=== PATIENT | male | born 1935 | race Caucasian/White ===

== ENCOUNTER 2016-08-07 09:11 | Inpatient (IN) | payer OTHER ==
[~2016-08-07] VITALS: Ht 160 cm; Wt 73.2 kg
[~2016-08-07 09:11] MED LIST: ASPIR 8181 MG PO; BACLOFEN10 MG PO; COR3 PO; ENALAPRIL/HCTZ1 TA1 PO; FER300 PO; GABAPENTIN100 M2 PO; IMDUR ER30 M1 PO; IPRATROPIUM BROM3 M2 INH; JALYN1 CAP PO; LAC PO; LASIX40 MG PO; LEVAQUIN750 MG PO; LEVOTHYROXINE0.1 M2 PO; NOR10T PO; PRAVASTATIN SOD20 M1 PO; PRI20 PO; PROTONIX20 MG PO; WARFARIN SODIUM3 MG PO
--- NOTE | 2016-08-07 09:32 | NUR ---
PT BIB FAMILY C/C CONSTIPATED X [address] SUDHIR HERMAN
--- NOTE | 2016-08-07 09:40 | NUR ---
PLEASE ENTER FULL NAMES OF RATE CLERK PASSENGER/RN Patient data collected by (RATE CLERK PASSENGER): Julien LIM Assessment reviewed and completed by (RN): Grace MORAN
--- NOTE | 2016-08-07 09:43 | NUR ---
DR LEIVA AT BEDSIDE TO BATSHEVA
--- NOTE | 2016-08-07 10:18 | NUR ---
PT TAKEN TO RADIOLOGY FOR XRAY
[2016-08-07] MEDS ORDERED: ISOSORBIDE MONO30 MG PO (11:01)
[2016-08-07] MEDS ORDERED: FUROSEMIDE40 MG PO (11:01)
[2016-08-07] MEDS ORDERED: LEVOTHYROXINE0.1 M2 PO (11:01)
[2016-08-07] MEDS ORDERED: GABAPENTIN300 M4 (11:01)
[2016-08-07] MEDS ORDERED: ENALAPRIL MALE2.5 MG PO (11:02)
[2016-08-07] MEDS ORDERED: JALYN1 CAP PO (11:02)
[2016-08-07] MEDS ORDERED: FERROUS SULFAT325 M2 PO (11:02)
[2016-08-07] MEDS ORDERED: PRAVACHOL20 MG PO (11:03)
[2016-08-07] MEDS ORDERED: BACLOFEN10 MG PO (11:03)
[2016-08-07] MEDS ORDERED: POTASSIUM CHLO10 MEQ PO (11:03)
--- NOTE | 2016-08-07 11:07 | NUR ---
PT MEDICATED WITH ZOFRAN PER ORDERS, PT EDUCATED ON MEDICATIONS PRIOR TO ADMINISTRATION, PT ON MONITOR.
[2016-08-07 11:16] LABS: BASOPHIL % 0.5 % (0-2)
[2016-08-07 11:18] LABS: PLATELET COUNT 105 x10^3mcL (130-400)
[2016-08-07 11:28] LABS: CALCIUM 8.3 mg/dL (8.5-10.1); CARBON DIOXIDE 23.9 mmol/L (21-32); CHLORIDE SERUM 110 mmol/L (98-107); CREATININE SERUM 1.2 mg/dL (0.7-1.3); GLUCOSE SERUM 88 mg/dL (74-106); POTASSIUM SERUM 4.1 mmol/L (3.5-5.1); SODIUM SERUM 143 mmol/L (136-145)
[2016-08-07 11:32] LABS: ALKALINE PHOSPHATASE 83 U/L (46-116); ALT/SGPT 20 U/L (16-63); AST/SGOT 26 U/L (15-37); BILIRUBIN TOTAL 1.1 mg/dL (0.20-1.00); LIPASE 52 IU/L (73-393); TOTAL PROTEIN, SERUM 6.8 g/dL (6.4-8.2)
[2016-08-07 11:33] LABS: ALBUMIN 3.2 g/dL (3.4-5.0); AMYLASE 22 U/L (25-115)
[2016-08-07] MEDS ORDERED: LATANOPROST2.5 ML OP (12:15)
[2016-08-07] MEDS ORDERED: PATADAY2.5 ML OU (12:15)
--- NOTE | 2016-08-07 12:43 | NUR ---
PT TO RESTROOM TO ATTEMPT TO HAVE A BOWEL MOVEMENT. PTS SON AT HIS SIDE.
[2016-08-07 13:30] VITALS: BP 97/41
[2016-08-07 13:36] VITALS: BP 97/41
--- NOTE | 2016-08-07 13:50 | NUR ---
RECIEVED PATIENT RESTING IN BED IN NO ACUTE DISTRESS, NO C/O PAIN AT THIS TIME, ALERT AND ORIENTED SON AT BEDSIDE, ABD FIRM AND DISTENDED, ORIENTED PATIENT TO ROOM AND SURROUNDINGS, BED IN LOW POSITION, BED RAILS UP X 2, CALL LIGHT WITHIN REACH, WILL ENDORSE CARE TO PRIMARY NURSE HERNANDO CAMARILLO
--- NOTE | 2016-08-07 14:20 | NUR ---
DR. PATEL MADE AWARE OF BP: 97/41 (61), HR: 40'S. PT DENIES NAUSEA, VOMITING, DIZZINESS. WILL CONTINUE TO MONITOR. CALL LIGHT WITHIN REACH.
--- NOTE | 2016-08-07 15:02 | NUR ---
RECEIVED CALL FROM MONITOR STAFF. HR IN 30S AND 40S CONSISTENT. DR. PATEL MADE AWARE. PT ORIENTED TO SELF, PLACE, AGE. RESPONSIVE TO TACTILE STIMULI.
--- NOTE | 2016-08-07 15:15 | NUR ---
RAPID RESPONSE CALLED DUE TO PT LETHARGIC. V/S: 85/11 (35), 83%O2SAT, HR:34. PT ULTIMATELY TRANSFERRED TO ICU SAFELY AT 1555.
[2016-08-07 15:41] LABS: MAGNESIUM 2.7 mg/dL (1.8-2.4)
[2016-08-07 15:42] LABS: CHOLESTEROL/HDL RATIO 2.2
[2016-08-07 15:44] LABS: T3 TOTAL 0.62 ng/mL
[2016-08-07 15:45] LABS: FREE T4 1.38 ng/dL (0.76-1.46); FREE THYROXINE INDEX 2.8 ug/dL (1.4-4.5); T4(THYROXINE) 7.2 ug/dL (4.7-13.3)
--- NOTE | 2016-08-07 15:50 | NUR ---
PT FOUND IN SEMI-FOWLERS ON MONTIOR WITH HR 37. DR JUNG AND DR CALDERA AT BEDSIDE. DR YANG CALLED TO VERIFY OK TO PUSH ATROPINE 1 AMP WHILE PT ON FOURDRINIER TENDER. ATROPINE ADMINISTERED. WILL TRANSFER PT TO ICU.
--- NOTE | 2016-08-07 16:00 | NUR ---
PATIENT RECEIVED ON UNIT AT THIS TIME. HR 75, O2 98, BP 122/49 (86), RR 16. TEMP 96.4. PATIENT ON 8 LPM NON-REBREATHER. PATIENT IS NPO EXPECT MEDS AT THIS TIME PENDING POSSIBLE PACEMAKER INSERTION. PATIENT HAS IV TO RAC. PUPILS ARE 3 MM AND BRISK BILATERALLY PULSES ARE WEAK FABIOLA, CAP REFILL IS <3 SECONDS X4. +2 EDEMA NOTED TO BLE. PATIENT HAS DUSKY FLAKEY SKIN NOTED TO BLE AND BUE. LUNG SUONDS ARE CLEAR TO BUL AND DIM TO BBA. BOWEL SOUNDS ARE HYPOACTIVE TO ALL QUADRANTS.PATIENT IS ALERT AND ORIENTED X4 AND CZECH SPEAKING WILL CONTINUE TO MONITOR PATIENT.
[2016-08-07 16:07] LABS: RED CELL DISTRIBUTION WIDTH 15.5 % (11.5-14.5)
[2016-08-07 16:08] LABS: PLATELET COUNT 102 x10^3mcL (130-400)
[2016-08-07 16:15] VITALS: BP 122/49
--- NOTE | 2016-08-07 16:30 | NUR ---
DR PATEL ON UNIT AT THIS TIME STATING DR GUTIERREZ WISHES TO PLACE TRANSVENOUS PACER. RADIOLOGY CALLED TO SET UP [place].
--- NOTE | 2016-08-07 16:40 | NUR ---
DR GUTIERREZ STATING THAT BECAUSE PT'S HR SUSTAINING, WE WILL HOLD OFF ON PACER. IF PT BECOMES SYMPTOMATIC, DR GUTIERREZ IS TO BE INFORMED.
--- NOTE | 2016-08-07 16:45 | NUR ---
PT TO BE PLACED ON DOPAMINE DRIP PER DR GUTIERREZ TO MAINTAIN HR.
--- NOTE | 2016-08-07 17:00 | NUR ---
DOPAMINE DRIP INITIATED.
--- NOTE | 2016-08-07 17:10 | NUR ---
DR GUTIERREZ TO PLACE TRANSVENOUS PLACER. LUCIANO CALLED. BED ON UNIT FOR PROCEDURE. SUPPLIES PROVIDED.
--- NOTE | 2016-08-07 17:15 | NUR ---
DR GUTIERREZ DISCUSSING PROCEDURE WITH FAMILY AT BEDSIDE.
--- NOTE | 2016-08-07 17:25 | NUR ---
DR GUTIERREZ STATES THAT HE WILL HOLD OFF ON PLACING PACER DUE TO PT HAVING IVC FILTER. WILL CONTINUE TO MONITOR.
--- NOTE | 2016-08-07 18:27 | NUR ---
echocardiogram completed
[2016-08-07 19:30] VITALS: BP 141/90
--- NOTE | 2016-08-07 19:32 | NUR ---
REPORT GIVEN TO NOC SHIFT RN DUSTY, UPDATES PROVIDED, ALL QUESTIONS ANSWERED, ALL CONCERNS ADDRESSED. WILL CONTINUE TO MONITOR PATIENT.
--- NOTE | 2016-08-07 20:00 | NUR ---
RECEIVED PT ALERT AND COMMUNICATING IN [place].CARDIAC SCOPE SHOWS ST 109 NO ECTOPIES.ON 2L/MIN O2 WITH EASY REGULAR BREATHING O2 SAT 96%;PT WITH BARREL CHEST.RIGHT AC IV WITH NS AT 100 ML/H AND DOPAMINE GTT AT 4 MCG/KG/MIN INFUSING WELL.VOIDING USING URINAL WITH TEA COLORED URINE SPECIMEN SENT TO LAB FOR UA.EXPLAINED USE OF CALL LIGHT PLACED WITHIN REACH AND BED ON LOW POSITION.
--- NOTE | 2016-08-07 21:53 | NUR ---
ABLE TO SWALLOW MEDS WITH APPLEAUCE.HR 81 O2 SAT 99% ON BIPAP.FAMILY AT BEDSIDE PRAYING.
--- NOTE | 2016-08-07 22:03 | NUR ---
PT C/O NEEDS MEDICATION TO DEFICATE;COLACE AND MILK OF MAGNESIA GIVEN.
--- NOTE | 2016-08-07 22:39 | NUR ---
ASSISTED PT SIDE OF BED USED URINAL ABLE TO PUT OUT 100 ML.REDNESS NOTED ON SACRAL AREA.PLACED CALL LIGHT WITHIN REACH AND INSTRUCTED TO USE.
[2016-08-07 22:42] LABS: microscopic required? YES; urine erythrocyte NEGATIVE (NEGATIVE)
[2016-08-07 23:14] LABS: AMPHETAMINE QUAL UR NONE DETECTED (NEG <=1000)
[2016-08-08] VITALS (7 sets, daily range): BP systolic 112–145; BP diastolic 47–69; Ht 160 cm; Wt 73.2 kg
--- NOTE | 2016-08-08 | NUR ---
PT SLEEPING ON 2L/MIN O2 WITH NO DISTRESS NOTED O2 SAT 96%.CARDIAC SCOPE SHOWS SB HR 59 NO ECTOPIES.LEFT AC IV WITH IVF NS AND DOPAMINE AT 4 MCG/KG/MIN INFUSING.CALL LIGHT WITHIN REACH SIDE RAILS UP AND BED ON LOW POSITION.
--- NOTE | 2016-08-08 00:51 | NUR ---
BLADDER SCAN DONE WITH 32 ML.
[2016-08-08 02:35] LABS: IRON 70 ug/dL (65-170); TOTAL IRON BINDING CAPACITY 264 ug/dL (250-450)
--- NOTE | 2016-08-08 04:31 | NUR ---
ASSISTED OOB TO BEDSIDE COMMODE;WITH UNSTEADY GAIT.UNCOOPERATIVE AND DEMANDING;TAKING OFF O2 AND MONITORS.RIGHT AC IV INTACT AND PATENT WITH NO INFILTRATION NOTED WITH DOPAMINE GTT AT 4 MCG/KG/MIN MAINTAINING HR 105. CALL LIGHT WITHIN REACH.
--- NOTE | 2016-08-08 04:54 | NUR ---
HAD SMEARS OF BROWN STOOL ATTEMPTED MANUAL EXTRACTION BUT TOO HIGH UP.ASSISTED BACK TO BED.CALL LIGHT WITHIN REACH.
[2016-08-08 05:54] LABS: CALCIUM 8.2 mg/dL (8.5-10.1); CARBON DIOXIDE 23.7 mmol/L (21-32); CHLORIDE SERUM 111 mmol/L (98-107); GLUCOSE SERUM 79 mg/dL (74-106); MAGNESIUM 3.2 mg/dL (1.8-2.4); PHOSPHOROUS 3.3 mg/dL (2.5-4.9); POTASSIUM SERUM 4.6 mmol/L (3.5-5.1); SODIUM SERUM 146 mmol/L (136-145)
--- NOTE | 2016-08-08 06:03 | NUR ---
UPDATED ON PTS STATUS ORDERS MADE.
[2016-08-08 06:08] LABS: BASOPHIL % 0.5 % (0-2); RED BLOOD CELLS 3.48 M/mm3 (4.52-5.90)
[2016-08-08 06:10] LABS: PLATELET COUNT 108 x10^3mcL (130-400); RED CELL DISTRIBUTION WIDTH 15.5 % (11.5-14.5)
--- NOTE | 2016-08-08 07:45 | NUR ---
DOPAMINE TITRATED TO 4 MCG/KG/MIN. BP 116/57, MAP 87, HR 88. WILL CONTINUE TO MONITOR.
--- NOTE | 2016-08-08 08:06 | NUR ---
HR 44-47. DOPAMINE DRIP TITRATED UP TO 4 MCG/KG/MIN. WILL CONTINUE TO MONITOR.
--- NOTE | 2016-08-08 09:43 | NUR ---
PATIENT ROUNDS WITH DR. GRANADOS AND RESIDENTS. CHARGE NURSE AND PRIMARY NURSE AT BEDSIDE. POC DISCUSSED. WILL FOLLOW AND CONTINUE TO MONITOR.
--- NOTE | 2016-08-08 10:25 | NUR ---
CLAY PROCESSING LABOURER AT BEDSIDE AT THIS TIME.
--- NOTE | 2016-08-08 10:53 | NUR ---
MODERATE AMOUNT OF BROWN LIQUID STOOL WHEN SUPPOSITORY APPLIED. WILL CONTINUE TO MONITOR.
--- NOTE | 2016-08-08 12:19 | NUR ---
DOPAMINE TITRATED TO 5 MCG/KG/MIN. HR 48, BP 118/49. WILL CONTINUE TO MONITOR.
--- NOTE | 2016-08-08 13:53 | NUR ---
DOPAMINE TITRATED TO 4 MCG/KG/MIN. BP 131/71, MAP 91, HR 106. WILL CONTINUE TO MONITOR.
--- NOTE | 2016-08-08 14:44 | NUR ---
SPOKE WITH DR. LEON REGARDING COUMADIN ADMINISTRATION FOR TODAY. COUMADIN TO BE HELD AT THIS TIME FOR POSSIBLE PACEMAKER PLACEMENT TOMORROW. WILL WAIT FOR DR. LEON TO ASSESS PATIENT AND DECIDE TO GIVE COUMADIN TODAY RI NOT. WILL FOLLOW AND CONTINUE TO MONITOR.
--- NOTE | 2016-08-08 15:52 | NUR ---
AMIRA FROM DIETARY AT BEDSIDE TO ASSESS. UPDATES PROVIDED.
--- NOTE | 2016-08-08 15:59 | NUR ---
1. Consider advance diet per doctor if/when medically appropriate. 2. Consider advance as tolerated to 2 gm Na diet if/when medically appropriate.
--- NOTE | 2016-08-08 15:59 | NUR ---
Initial Nutrition Assessment Dx: Abd Pain, Dehydration, Constipation PMHx: Bilateral hip and knee replacements, arthritis, cardiac dysrhythmia, HTN, DVT with IVF filter placement PSHx: Hip arthroplasty Labs: Na 146 H, BG 79, BUN 25 H, Magnesium 3.2 H, H/H 11.4/35 L; (08/07) ALB 3.2 L, TBili 1.1 H, A1C 5.8 H Meds: Colace, D10, dulcolax, ferrous sulfate, humulin R, imdur, lactinex, Lasix, MOM, Prilosec, NS IV, theragran zofran Current Diet Order: NPO except meds (x1 day) (Possible Procedure) Ht: 63", 5' 3". Wt: 161 lb, 73 kg. BMI: 28.6 kg/m2 (Overweight) IBW: 124 lb, 56 kg. %IBW: 130%. Adj BW: 133 lb, 61 kg. UBW: Unable to obtain Age: 80 Y/O M Food Allergies: Unable to obtain Skin: Intact. Ayan 17. Edema: 2+ pitting BLE GI: Abd distended, firm per RN. Hyperactive bowel sounds. Last BM x3 08/08. Liquid brown stool. Note pt on Colace, dulcolax, imdur, MOM. Nursing Trigger: Poor PO intakes >3 days. Pt found with intractable abd pain secondary to possible constipation, r/o large vs SBO per doctor's notes. Per doctor's progress note 08/08, medical editor recommended pacemaker but not at this time, complaining of constipation overnight, given mag citrate, suppository, fleet enema. Pt was seen sleeping soundly during RD visit. No family at bedside. Pt appears overly-nourished, consistent with documented anthropometrics. Spoke with RN, reported pt did not sleep last night due to complains of abd pain secondary to constipation. No pending procedures per RN, just gave suppository, x1 small BM today. Estimated Nutritional Needs Based IBW 124 lb, 56 kg Energy: 0496-4205 kcal/day (25-30 kcal/kg for Geriatric Maintenance) Protein: 56 gm/day (1 gm/kg for Geriatric Maintenance) Fluids: 1400 ml/day (25 ml/kg for Geriatric Maintenance) or per doctor Nutrition Diagnosis Inadequate oral intakes related to abd pain secondary to constipation as evidenced by current NPO status Intervention 1. Consider advance diet per doctor if/when medically appropriate. 2. Consider advance as tolerated to 2 gm Na diet if/when medically appropriate. Monitor/Evaluate Goal: NPO <5-7 days; Diet Advancement Monitor: NPO status, diet advancement, labs, skin integrity, GI function, weights F/U in 3-5 days as MODERATE risk (08/11-08/13)
--- NOTE | 2016-08-08 16:45 | NUR ---
DR SALMERON AT BEDSIDE TO ASSESS PT. STATUS UPDATES PROVIDED. DISCUSSED THAT INTERNAL PACEMAKER TO BE PLACED TOMORROW AT 1330. FAMILY INFORMED BY DR GUERRERO.
--- NOTE | 2016-08-08 19:00 | NUR ---
RECEIVED REPORT FROM MARQUISE KHANNA, ALL QUESTIONS ADDRESSED, WILL TAKE OVER CARE.
--- NOTE | 2016-08-08 19:10 | NUR ---
REPORT GIVEN TO ALBINO CAMARILLO. ALL QUESTIONS GIVEN AND CONCERNS ADDRESSED.
--- NOTE | 2016-08-08 19:40 | NUR ---
PT AOX4, PUPILS REACTIVE, NO HEADACHE. NO DRAINAGE EENT, NO COUGH OR SECRETIONS. ORAL MUCOSA INK AND DRY. RESPIRATIONS EQUAL AND UNLABORED, LUNGS DIMINISHED THROUGHOUT, NO DISTRESS. HR 67, BP 116/47, MAP 74, CHEST WALL STABLE, S1S2 AUSCULTATED, NO CP, DIZZINESS, OR SYNCOPE. SKIN APPROPRIATE FOR ETHNICITY, WARM AND DRY, CAP REFILL <3, EDEMA +2 BLE, LEGS DRY, PULSES PALPABLE. NO CONTRACTURES L HAND HAS DEFORMITY. FULL LIQUID DIET, NO N/V. ABD SOFT, ROUND, NONTENDER, BOWEL SOUNDS ACTIVE X4, BM LOOSE. URINE YELLOW, NO PENIAL DRAINAGE OR EDEMA. PT CALM AND COOPERATIVE HAS FAMILY SUPPORT, WILL CONTINUE TO MONITOR.
[2016-08-09 03:11] VITALS: BP 113/50
[2016-08-09 05:08] LABS: BASOPHIL % 0.5 % (0-2)
[2016-08-09 05:15] LABS: CALCIUM 8.3 mg/dL (8.5-10.1); CARBON DIOXIDE 25.2 mmol/L (21-32); CHLORIDE SERUM 111 mmol/L (98-107); CREATININE SERUM 1.1 mg/dL (0.7-1.3); GLUCOSE SERUM 79 mg/dL (74-106); POTASSIUM SERUM 4.6 mmol/L (3.5-5.1); SODIUM SERUM 145 mmol/L (136-145)
[2016-08-09 05:29] LABS: PLATELET COUNT 110 x10^3mcL (130-400); RED CELL DISTRIBUTION WIDTH 15.9 % (11.5-14.5)
--- NOTE | 2016-08-09 06:24 | NUR ---
BED BATH GIVEN CHG WIPES USED, LINEN AND GOWN CHANGED, WILL CONTINUE TO MONITOR.
--- NOTE | 2016-08-09 07:15 | NUR ---
REPORT RECEIVED FROM ALBINO CAMARILLO.
[2016-08-09 07:30] VITALS: BP 116/56
--- NOTE | 2016-08-09 07:30 | NUR ---
PT IS RESTING COMFORTABLY IN BED. PT IS AOX4. AMHARIC SPEAKING, BIT OF YORUBA. PERRLA, 3MM BRISK. PT IS ON 2L NC. BREATHING IS EVEN AND UNLABORED. LUNG SOUNDS ARE DIMINISHED THROUGHOUT. S1 S2 HEART SOUNDS AUSCULTATED. A-FIB. PULSES ARE MODERATE X4. CAP REFILL < 3 S. SKIN IS WARM AND PALE. ABD IS SOFT AND DISTENDED. BOWEL SOUNDS ACTIVE X4Q. PT HAS HAD MUTLIPLE BMS DURING STONE FINISHER. PT VOIDS FREELY. R AC IV INTACT, SECURED, DRESSING CDI. INFUSING NS @ 100 CC/HR AND DOPAMINE @ 4 MCG/KG/MIN. EXCORIATION NOTED TO SCROTUM, REDNESS TO SACRALCOCCYX. PT DENIES PAIN AT THIS TIME. NO DISTRESS NOTED. PT TO HAVE PACEMAKER PLACED TODAY ~1300. HOB ELEVATED, BED LOW, SIDE RAILS UP X3, CALL LIGHT IN REACH. WILL CONTINUE TO MONITOR.
--- NOTE | 2016-08-09 09:34 | NUR ---
DR CARDOZO AND RESIDENTS ON UNIT MAKING ROUNDS. AT BEDSIDE TO SEE PT. UPDATED ON PT STATUS, QUESTIONS ANSWERED.
--- NOTE | 2016-08-09 10:23 | NUR ---
PT HAD LARGE BROWN LIQUID BM. PT BATHED, LINENS CHANGED.
[2016-08-09 11:06] VITALS: BP 146/53
--- NOTE | 2016-08-09 11:15 | NUR ---
DOPAMINE TITRATED TO 3 MCG/KG/MIN.
--- NOTE | 2016-08-09 11:45 | NUR ---
DOPAMINE TITRATED TO 4 MCG/KG/MIN. HR < 60.
--- NOTE | 2016-08-09 11:52 | NUR ---
SPOKE WITH DR SANFORD AND REPORT THAT PATIENT'S BEDSIDE GLUCOSE 67 AND PATIENT NPO FOR PROCEDURE. PATIENT TO RECEIVED D50 OVER 1 HOUR PER PROTOCOL BY PRIMARY RN SUZAN. IVF TO BE CHANGED BY DR SANFORD.
--- NOTE | 2016-08-09 11:58 | NUR ---
PT'S BS = 67. D10 STARTED PER PROTOCOL.
--- NOTE | 2016-08-09 12:22 | NUR ---
RELIGIOUS ACTIVITIES DIRECTOR TEAM AT BEDSIDE PREPARING TO TRANSPORT PT TO RELIGIOUS ACTIVITIES DIRECTOR FOR PACEMAKER PLACEMENT. PRE-OP CHECKLIST COMPLETED.
--- NOTE | 2016-08-09 15:45 | NUR ---
PT BROUGHT BACK ON BED BY HELP DESK TECHNICIAN TEAM. REPORT RECEIVED FROM LIVAN CAMARILLO. SINGLE LEAD PACEMAKER PLACED SUCCESSFULLY IN R VENTRICLE. SET TO VBI, RATE 60. 50 MCG FENTANYL WAS GIVEN DURING THE PROCEDURE. 2GM ANCEF GIVEN @ 1315. POCKET WAS FLUSHED W/ VANCO BY DR LEON. STERISTRIP AND PRESSURE DRESSINGS COVER L CHEST. PRESSURE DRESSING TO BE REMOVED TOMORROW. PT IS IN L ARM SLING.
[2016-08-09 16:59] VITALS: BP 81/44
--- NOTE | 2016-08-09 19:15 | NUR ---
REPORT GIVEN BY SUZAN, ALL CARE ENDORSSED.
[2016-08-09 19:30] VITALS: BP 95/52
--- NOTE | 2016-08-09 19:30 | NUR ---
RECEIVEDM PT IN BED A/OX4,. CLEAR SPEECH FOLLOWS SIMPLE COMAND. LUNG SOUND DIM BILAT. ON 2LNC. PT SAT AT TIME 100%. PACED TODAY WITH PERMANENT SINGLE LEAD PACEMAKER WITH RATE 60BPM. COVER WITH DRESSING AND A SLING TO LEFT SIDED. HOB ELEVATED AT 30 DEG. IV INFUSE WITH NS AT 20ML/HRS TO LFA.BOWEL SOUNF HYPER ACTIVE X4Q. SAFETY IN PLACE, CALL LIGHT WITHIN REACH, WILL CONTINUE TO MONITOR.
--- NOTE | 2016-08-09 20:00 | NUR ---
FAMILY AT PT BED VISITING.
--- NOTE | 2016-08-09 21:00 | NUR ---
DR SAMANO IN THE UNIT. UPDATED ON PT'S STATUS.
--- NOTE | 2016-08-09 21:10 | NUR ---
DR SAMANO AT PT BEDSIDE ASSESS PT.
--- NOTE | 2016-08-09 21:52 | NUR ---
PT HAD A LARGE WATETY BM, SPONGE BATH GIVEN. PT IS CDI.
--- NOTE | 2016-08-09 22:31 | NUR ---
PT WILL TRANSFER TO ROOM 240-A, REPORT GIVEN TO VALENTE, ALL CARE ENDORSSED.
--- NOTE | 2016-08-09 22:51 | NUR ---
RECEIVED PT FROM ICU VIA BED , PT' AAOX4 CENY PAIN AT THE MOMENT , S/P PACEMAKER PLACEMENT TODAY PRESSURE DRESSING NOTED ON THE PACEMAKER SITE C/D/I , LEFT ARM ON THE SLING , PT'S ABLE TO MOVE AND WIGGLE HIS FINGER , SKIN WARM TO TOUCH , LUNG SOUNDS DIMINISHED , ON 2L N/C SAT 97% , V/S 105/58 HR 60 TEMP 97.2 , RESP 22, MAP 71, PLACED PT ON TELE 40 THAT SHOWS AFIB WITH BBB . PIV TO LEFT ARM INTACT , RIGHT PARRIS HL INTACT FLUSHING WELL ,BILAT LOWER EXTR WITH 2+EDEMA WITH DISCOLORATION NO OPEN AREA NOTED , PT;S SKIN IS DRY WARM TO TOUCH .
--- NOTE | 2016-08-10 | NUR ---
RT AT PT BEDSIDE PER PROTOCOL
--- NOTE | 2016-08-10 01:22 | NUR ---
PT'S IN BED WITH EYES CLOSED , TELE AFIB , PIV INTACT INFUSING WELL , SLING TO LEFT ARM INPLACE .
[2016-08-10 05:54] VITALS: BP 142/43
--- NOTE | 2016-08-10 06:11 | NUR ---
NO CHANGES OF CONDITION NOTED, ALL DUE MEDS GIVEN NO REACTION NOTED , LEFT ARM REMAINED ON SLING , PT DENY PAIN AT THE MOMENT , PIV /HL INTACT INFUSING WELL .
[2016-08-10 08:42] VITALS: BP 89/44
--- NOTE | 2016-08-10 10:41 | NUR ---
AT 0730 - RECEIVED PATIENT FROM NIGHT NURSE. PATIENT AWAKE, ALERT AND APPEARS ORIENTED. MONITOR SHOWING A-FIB WITH PACING ON DEMAND. RATE 60'S. RECENT PACEMAKER PLACEMENT YESTERDAY. PRESSURE DRESSING TO L CHEST/SHOULDER IS DRY AND INTACT. LEFT ARM IMMOBILIZED IN SLING. IV AT TKO RATE OF 10ML/HR. NOTED 2+ EDEMA IN BLE WITH DISCOLORATION OF SKIN. ALSO NOTED ECCYMOSIS OF RUE. PATIENT SAT UP IN BED FOR BREAKFAST. AT 0800 - SEEN BY DR GRANADOS DURING MORNING ROUNDS. MEDICALT EAM DOCTORS, GETACHEW MUNGUIA AND MTYSELF PRIMARY NURSE ALSO PRESENT. DR GRANADOS SPOKE WITH PATIENT ABOUT PLAN FOR PACEMAKER CHECK, CARDIOLOGY CLEARANCE AND PHYSICAL THERAPY AND DISCHARGE HOME LATER TODAY. PATIENT VERBALIZED AGREEMENT. AT 0835 - PATIENT WANTS TO GO HOME RIGHT NOW. EXPLAINED TO PATIENT THAT HE WILL NOT BE RELEASED UNTIL SOMETIME IN THE AFTERNOON, BUT PATIENT INSISTS ON LEAVING. CALLED PATIENT'S SON PER PHONE WHO ALSO SPOKE WITH PATIENT ABOUT THE PLAN. AT 0915 - PATIENT'S SON NOW AT BEDSIDE. HE EXPLAINED TO PATIENT THE PLAN. AT 0935 - QUALITY CONTROL INDUSTRIAL ENGINEER NURSES AT BEDSIDE. THEY REMOVED PRESSURE DRESSING AND NOTED SOME POSSIBLE SUBCUTANEOUS EMPHYSEMA NEAR THE PACEMAKER SITE. PT ALSO AT BEDSIDE. PATIENT'S O2 88% ON ROOM AIR.SO PALCED BACK ON O2 VIA IA. CALL PALCED FOR DR SANFORD. DR GRANADO ANSWERED THE CALL FOR DR SANFORD AND WAS INFORMED OF WOUND SITE, HYPOTENSION AND LOW O2 ON RA.
--- NOTE | 2016-08-10 13:58 | NUR ---
P.T. NOTES CHART REVIEWED AND RECEVIED CLEARANCE FOR P.T. EVAL; PT CAME INITIALLY FOR CONSTIPATION, DURING HOSPITAL STAY HAD SINUS SHANNON, UNDERWENT S/P PACEMAKER PLACEMENT ON 08/09/16; PT LIVES WITH SONS WHO HELPS CARE FOR HIM AT HOME; WAS INDEP WITH USE OF 4WW, NEEDS SET UP WITH SOME ADLS S: PT FOUND AWAKE, SON XI PRESENT AT BEDSIDE AND VERY SUPPORTIVE OF CARE. PT DENIES OF PAIN, ANXIOUS TO GO HOME TODAY. COOPERATIVE WITH P.T. O: VS: INITIAL BP: 68/32MMHG HR: 59BPM; SPO2 ON ROOM AIR: 86%, APPLIED O2 VIA NC AT 1.5L O2 INCREASED TO 95%, IN SITTING: BP INCREASED TO 125/95MMHG GR: 62BPM; (+) ARM SLING TO LT UE BED MOBILITY: MIN LOG ROLL TO RT SIDE ONLY TRANSFERs: MIN A GAIT: MIN A WITH PRE GAIT PROGRESSED TO LINEAR GAIT UP TO 10FT WITH FWW, SPO2 AT 93% KEPT ON CONT O2 AT 1.5L, WHEN O2 WAS REMOVED AT REST, PT DESATURATED TO 87%, RE-PPLIED, O2 INCREASES TO 93 TO 95% A: THROUGH PT AND FAMILY EDUCATION WAS PROVIDED TODAY ON HEP, SAFE ENERGY CONSERVATION TECHNIQUES, USE OG SLING AND PROPER POSITIONING WITH SKIN CHECK, ROM TO LT HAND AND ELBOW, NO OVERHEAD ROM TO LT SHOULDER WITH GOOD UNDERSTANDING OF FAMILY AND PATIENT. PT WOULD BENEFIT FROM HOME HEALTH P.T. UPON DC TO HOME. P: IF PT STAYS IN HOSPITAL MONITOR O2 WITH FUNCTIONAL ACTIVITY EVAL 45; PVE X 1 ( THOROUGH PT EDUCATION ) GCODE:[id number] TUG SCORE: 15 SECS [phone]
[2016-08-10 14:45] VITALS: BP 89/29
[2016-08-10 14:55] VITALS: BP 89/44
--- NOTE | 2016-08-10 16:28 | NUR ---
AT 1100 - SEEN BY DR LEON WHO EXAMINED PATIENT'S INCISION/PACEMAKER SITE. CARDIAC CATH NURSE REDRESSED AND APPLIED STERISTRIPS TO INCISION INSTRUCTED BY DR LEON. AT 1340 - SEEN BY DR SANFORD, WHO SPOKE WITH SON. DR AWARE OF PATIENT'S LOW BP. AT 1500 - PATIENT HAS BEEN EVALUATED BY RT AND RECEIVED BREATHING TREATMENT. O2 SAT 93-95% ON ROOM AIR. WILL BE DISCHARGED HOME PER DR SANFORD. AT 1610 - RECEIVED DISCHARGE ORDERS. DR SANFORD SPOKE WITH PATIENT'S SON AND INSTRUCTED HIM ABOUT HOLDING PATIENT'S BP MEDS TODAY AND RESUMING THEM SCHEDULED, TOMORROW. IV CATHETERS REMOVED INTACT. TAKEN OFF CARDIAC MONITORING AND PREPARED FOR DISCHARGE.
[2016-08-10 17:15] VITALS: BP 78/45
--- NOTE | 2016-08-10 17:33 | NUR ---
AT 1700 - PRINTED DISCHARGE INSTRUCTIONS GIVEN AND EXPLAINED TO PATIENT'S SON. PATIENT DRESSED AND SITTING ON SIDE OF BED. SPOKE AGAIN WITH DR SANFORD ABOUT PERSISTANT, ASYMPTOMATIC LOW BP. AT 1715 - DR SANFORD AT BEDSIDE. PATIENT STOOD UP USING A WALKER. NO SOB NOTED. O2 SAT 92-95%. BP 78/45. PATIENT DENIES ANY DIZZINESS. SAYS THAT HE WANTS TO GO HOME. PATIENT'S SON INSTRUCTED BY DR SANFORD ABOUT HOLDING BP MEDS TODAY AND RESUMING TOMORROW. BOTH IV CATHETERS REMOVED INTACT. AT 1725 - DISCHARGED HOME WITH SON. TAKEN TO CAR IN WHEELCHAIR BY JOSE.
== END 2016-08-10 17:27 | disposition home health service (06) | DRG 242 ==
LOC: ED 09:11 → DU 11:44 → IC 11:44 → DU 13:25 → IC 15:55 → DU 08-09 22:51
PROVIDERS: Emergency Medicine; Internal Medicine Interventional Cardiology; ADMIT Family Medicine
PROC: 02HK3JZ Insertion of Pacemaker Lead into Right Ventricle, Percutaneous Approach (ICD-10-PCS; 2016-08-09)
PROC: 0JH604Z Insertion of Pacemaker, Single Chamber into Chest Subcutaneous Tissue and Fascia, Open Approach (ICD-10-PCS; principal; 2016-08-09 13:00)
DX: I49.5 Sick sinus syndrome (principal); I50.43 Acute on chronic combined systolic (congestive) and diastolic (congestive) heart failure; N17.0 Acute kidney failure with tubular necrosis; E44.0 Moderate protein-calorie malnutrition; I11.0 Hypertensive heart disease with heart failure; I42.0 Dilated cardiomyopathy; I48.2 Chronic atrial fibrillation; K59.00 Constipation, unspecified; D63.8 Anemia in other chronic diseases classified elsewhere; I25.10 Atherosclerotic heart disease of native coronary artery without angina pectoris; E86.0 Dehydration; E83.41 Hypermagnesemia; I36.1 Nonrheumatic tricuspid (valve) insufficiency; Z68.28 Body mass index [BMI] 28.0-28.9, adult; Z96.653 Presence of artificial knee joint, bilateral; Z96.643 Presence of artificial hip joint, bilateral; Z86.718 Personal history of other venous thrombosis and embolism
CPT/HCPCS: 33207; 83880; 84439; 94150; B4164; C1786; J0461; J0690; J1200; J1265; J1885; J2001; J2250; J2405; J3010; J3370; J7030; J7040; J7042; J7050; J7620; Q0092; Q9967

== ENCOUNTER 2016-09-29 02:34 | Inpatient (IN) | payer OTHER ==
[~2016-09-29] VITALS: Ht 157.5 cm; Wt 67.6 kg
[~2016-09-29 02:34] MED LIST changes: +ENALAPRIL MALE2.5 MG PO; +FERROUS SULFAT325 M2 PO; +FUROSEMIDE40 MG PO; +GABAPENTIN300 M4; +ISOSORBIDE MONO30 MG PO; +LATANOPROST2.5 ML OP; +PATADAY2.5 ML OU; +POTASSIUM CHLO10 MEQ PO; +PRAVACHOL20 MG PO
[2016-09-29 04:23] LABS: BASOPHIL % 0.6 % (0-2)
[2016-09-29 04:26] LABS: PLATELET COUNT 88 x10^3mcL (130-400); RED CELL DISTRIBUTION WIDTH 16.1 % (11.5-14.5)
[2016-09-29 04:34] LABS: CALCIUM 9.1 mg/dL (8.5-10.1); CHLORIDE SERUM 104 mmol/L (98-107); CREATININE SERUM 1.3 mg/dL (0.7-1.3); GLUCOSE SERUM 95 mg/dL (74-106); POTASSIUM SERUM 4.3 mmol/L (3.5-5.1); SODIUM SERUM 144 mmol/L (136-145)
[2016-09-29 04:50] LABS: ALBUMIN 3.3 g/dL (3.4-5.0); ALKALINE PHOSPHATASE 375 U/L (46-116); ALT/SGPT 23 U/L (16-63); AST/SGOT 32 U/L (15-37); TOTAL PROTEIN, SERUM 6.7 g/dL (6.4-8.2)
[2016-09-29 07:04] LABS: T3 TOTAL 0.56 ng/mL
[2016-09-29 07:43] LABS: MAGNESIUM 2.4 mg/dL (1.8-2.4); PHOSPHOROUS 4.8 mg/dL (2.5-4.9)
[2016-09-29 07:45] LABS: CHOLESTEROL/HDL RATIO 1.8
[2016-09-29 07:52] LABS: FREE T4 1.43 ng/dL (0.76-1.46); FREE THYROXINE INDEX 2.8 ug/dL (1.4-4.5); T4(THYROXINE) 7.9 ug/dL (4.7-13.3)
[2016-09-29 09:58] LABS: IRON 73 ug/dL (65-170)
[2016-09-29 10:01] LABS: TOTAL IRON BINDING CAPACITY 214 ug/dL (250-450)
[2016-09-29 10:04] LABS: microscopic required? YES; urine erythrocyte TRACE (NEGATIVE)
[2016-09-29 10:26] VITALS: BP 103/43
[2016-09-29 10:56] LABS: AMPHETAMINE QUAL UR NONE DETECTED (NEG <=1000)
[2016-09-29 11:40] VITALS: BP 88/41
[2016-09-29 14:33] VITALS: BP 88/41
[2016-09-29 17:50] VITALS: BP 102/48
[2016-09-29 21:40] VITALS: BP 87/41
[2016-09-29 23:01] VITALS: BP 96/37
[2016-09-30 05:49] VITALS: BP 125/65
[2016-09-30 06:23] LABS: BASOPHIL % 0.4 % (0-2)
[2016-09-30 06:41] LABS: CALCIUM 8.4 mg/dL (8.5-10.1); CARBON DIOXIDE 23.4 mmol/L (21-32); CHLORIDE SERUM 108 mmol/L (98-107); CREATININE SERUM 1.2 mg/dL (0.7-1.3); GLUCOSE SERUM 90 mg/dL (74-106); MAGNESIUM 2.3 mg/dL (1.8-2.4); PHOSPHOROUS 4.1 mg/dL (2.5-4.9); POTASSIUM SERUM 4.3 mmol/L (3.5-5.1); SODIUM SERUM 141 mmol/L (136-145)
[2016-09-30 06:50] LABS: PLATELET COUNT 76 x10^3mcL (130-400); RED CELL DISTRIBUTION WIDTH 16.2 % (11.5-14.5)
[2016-09-30 09:07] VITALS: BP 83/50
== END 2016-09-30 12:15 | disposition left against medical advice (07) | DRG 166 ==
LOC: ED 02:34 → DU 05:47
PROVIDERS: Emergency Medicine; ADMIT Family Medicine
PROC: 0JBR0ZZ Excision of Left Foot Subcutaneous Tissue and Fascia, Open Approach (ICD-10-PCS; principal; 2016-09-29)
PROC: 0HQ0XZZ Repair Scalp Skin, External Approach (ICD-10-PCS; 2016-09-29)
DX: J69.0 Pneumonitis due to inhalation of food and vomit (principal); N17.0 Acute kidney failure with tubular necrosis; L89.623 Pressure ulcer of left heel, stage 3; I24.8 Other forms of acute ischemic heart disease; I42.0 Dilated cardiomyopathy; E44.1 Mild protein-calorie malnutrition; G45.8 Other transient cerebral ischemic attacks and related syndromes; S01.01XA Laceration without foreign body of scalp, initial encounter; R73.03 Prediabetes; N28.1 Cyst of kidney, acquired; I48.2 Chronic atrial fibrillation; N40.0 Benign prostatic hyperplasia without lower urinary tract symptoms; M06.9 Rheumatoid arthritis, unspecified; H40.10X0 Unspecified open-angle glaucoma, stage unspecified; I25.2 Old myocardial infarction; Z95.0 Presence of cardiac pacemaker; Z87.891 Personal history of nicotine dependence; Z68.27 Body mass index [BMI] 27.0-27.9, adult; Z79.891 Long term (current) use of opiate analgesic; Z96.653 Presence of artificial knee joint, bilateral; Z96.643 Presence of artificial hip joint, bilateral; W01.0XXA Fall on same level from slipping, tripping and stumbling without subsequent striking against object, initial encounter; Y92.002 Bathroom of unspecified non-institutional (private) residence as the place of occurrence of the external cause
CPT/HCPCS: 83880; 84439; 90715; 94150; 97110-GP; J2543; J7030; J7050; Q0092

== ENCOUNTER 2016-12-12 17:35 | Inpatient (IN) | payer OTHER ==
[~2016-12-12] VITALS: Ht 157.5 cm; Wt 66.8 kg
--- NOTE | 2016-12-12 17:58 | NUR ---
PT IS A 80 YEAR OLD MALE, PRESENTS TO ED VIA [facility] ALS WITH C/O ALOC APRROX 40MINS ACTIVITIES LEADER OF MEDICS ON SCENE. PER MEDICS, PT WAS ALOC ON SCENE, PER FAMILY, PT WAS "LAYING IN BED, AND WAS UNRESPONSIVE, AND HE WOULDNT WAKE UP TO ME SHAKING HIM, AND HIS EYES WERE ROLLING BACK, AND HIS LIPS WERE BLUE". PER MEDICS, EN ROUTE PT STARTED TO COME AROUND AND PT WAS NOW A/O X4 GCS OF 15 UPON ARRIVAL TO ED. UPON ARRIVAL TO ED, PT HAD RECIEVE TOTAL 300ML TOTAL OF NS EN ROUTE. PT WAS A/O X2 TO NAME AND BIRTHDATE, WHEN I ASKED PT ABOUT DATE AND PRESIDENT OF .S. PT STATED "I KNOW IT BUT I FORGOT." PT LIPS APPEAR SLIGHTLY BLUISH IN COLOR. PT LUNG SOUNDS HAVE WHEEZE TO RIGHT SIDE. PT HAS PACE MAKER IN LEFT CHEST AREA. PTS LEGS BILATERALLY HAVE PITTING EDEMA NOTED. PT SPEECH IS CLEAR. PT STATING "I FEEL GOOD". PT HOOKED TO FULL COMPUTATIONAL SCIENTIST. MSE PERFORMED BY DR. MARSHALL.
[2016-12-12 18:15] LABS: BASOPHIL % 0.6 % (0-2)
[2016-12-12 18:19] LABS: CALCIUM 8.9 mg/dL (8.5-10.1); CARBON DIOXIDE 29.5 mmol/L (21-32); CHLORIDE SERUM 107 mmol/L (98-107); CREATININE SERUM 1.2 mg/dL (0.7-1.3); GLUCOSE SERUM 100 mg/dL (74-106); POTASSIUM SERUM 4.2 mmol/L (3.5-5.1); SODIUM SERUM 140 mmol/L (136-145)
[2016-12-12 18:22] LABS: ALKALINE PHOSPHATASE 313 U/L (46-116); ALT/SGPT 31 U/L (16-63); AST/SGOT 36 U/L (15-37); BILIRUBIN TOTAL 0.78 mg/dL (0.20-1.00); PLATELET COUNT 84 x10^3mcL (130-400); RED CELL DISTRIBUTION WIDTH 15.1 % (11.5-14.5); TOTAL PROTEIN, SERUM 7.6 g/dL (6.4-8.2)
[2016-12-12 18:30] LABS: ALBUMIN 3.3 g/dL (3.4-5.0); CHOLESTEROL 111 mg/dL (<200)
--- NOTE | 2016-12-12 19:19 | NUR ---
REPORT GIVEN TO BRUCE CAMARILLO, HE WILL ASSUME CARE PRIMARY RN/
--- NOTE | 2016-12-12 20:35 | NUR ---
RECEIVED PT FROM ED VIA BAKARI, CAME IN DUE TO SOB AND SYNCOPE. AAOX4, ABLE TO FOLLOW COMMANDS, SPEECH IS CLEAR. DENIES HEADACHE/DIZZINESS. NO SOB NOTED AT THIS TIME, ON 2LPM/NC, O2 SAT=97%. LUNG SOUNDS DIMINISHED ON THE BASES. PT STATED "AT TIMES I FEEL LIKE SOMETHING IS STUCK ON MY THROAT". W/ LEFT UPPER CHEST PACEMAKER (BIOTRONIK), PACED ON DEMAND. W/ +3 EDEMA ON BLE. WEAK PEDAL PULSES. W/ DARK DISCOLORATION ON BLE, OPEN WOUND ON LEFT BUTTOCK AND BLANCHABLE REDNESS ON THE BUTTOCKS. SIDE RAILS UPX2. CALL LIGHT ON REACH. HOB ELEVATED AT 45 DEG. SON AT BEDSIDE. ENDORSED TO PRIMARY NURSE SUMAN FOR CONTINUITY OF CARE.
--- NOTE | 2016-12-12 20:45 | NUR ---
PT RECEIVED FROM RESOURCE NURSE. PT A/O X4, ACCOMPANIED BY SON AT BEDSIDE. TELE #27, PACED ON DEMAND, DENIES CHEST PAIN, PACE MAKER TO LEFT UPPER CHEST. WEAK PEDAL PULSES PALPATED, +3 EDEMA NOTED TO BLE. LUNG SOUNDS DIMINISHED, ON 02 2L NC, NO RESP DISTRESS OBSERVED. ABD SOFT AND NONDISTENDED, BOWEL TONES ACTIVE. PT VOIDS USING A URINAL. STRICT I/O's. GENERALIZED WEAKNESS, PT USES A WALKER TO AMBULATE AT HOME. DARK DISCOLORATION NOTED TO BLE; SMALL OPEN WOUND NOTED TO LEFT BUTTOCK, BLANCHABLE REDNESS NOTED. PT DENIES PAIN AT THIS TIME. IVF INFUSING WELL TO LAC, NS @ 10 ML/HR. ORIENTED PT TO ROOM AND SURROUNDINGS. BED IN LOWEST SETTING, HOB ELEVATED, SIDE RAILS UP X2, CALL LIGHT PLACED WITHIN REACH. WILL CONTINUE TO MONITOR.
[2016-12-12 20:49] VITALS: BP 101/48
[2016-12-12 21:02] LABS: CHOLESTEROL/HDL RATIO 1.8; PHOSPHOROUS 5.1 mg/dL (2.5-4.9)
[2016-12-12 21:05] LABS: T3 TOTAL 0.54 ng/mL
[2016-12-12 21:06] VITALS: Ht 157.5 cm; Wt 66.8 kg
[2016-12-12 21:06] LABS: FREE T4 1.48 ng/dL (0.76-1.46); FREE THYROXINE INDEX 3.5 ug/dL (1.4-4.5); T4(THYROXINE) 8.5 ug/dL (4.7-13.3)
--- NOTE | 2016-12-12 23:15 | NUR ---
PT'S PHOS-5.1. DR GEE NOTIFIED. NO NEW ORDERS AT THIS TIME.
[2016-12-13] VITALS (10 sets, daily range): BP systolic 78–107; BP diastolic 30–50
[2016-12-13 01:42] LABS: microscopic required? NO
[2016-12-13 02:02] LABS: UA SPECIFIC GRAVITY <=1.005 (1.005-1.035); urine erythrocyte NEGATIVE (NEGATIVE)
[2016-12-13 02:13] LABS: AMPHETAMINE QUAL UR NONE DETECTED (NEG <=1000)
--- NOTE | 2016-12-13 07:02 | NUR ---
PT SLEPT WELL THROUGHOUT THE NIGHT, DENIES PAIN OR SOB. NO RESP DISTRESS OBSERVED. STRICT I/O's MAINTAINED. ON AIR MATTRESS. IVF INFUSING WELL TO LAC. BED IN LOWEST SETTING, SIDE RAILS UP X2, CALL LIGHT WITHIN REACH. WILL ENDORSE CARE TO AM NURSE.
--- NOTE | 2016-12-13 07:45 | NUR ---
PATIENT RECEIVED A/O AND ABLE TO MAKE NEEDS KNOWN, FOLLOWS COMMANDS. DENIES FEELING SOB OR CHEST PAIN. 2L NC IN PLACE, O2 SAT 94%. BREATHING EVEN AND UNLABORED AT THIS TIME. SWELLING/EDEMA AND DISCOLORATION TO BLE'S, WEAK PEDAL PULSES. DENIES PAIN AT THIS TIME. NO SIGN OF ACUTE DISTRESS. AIR MATTRESS IN PLACE, LT BUTTOCK WITH OPEN WOUND BUT NO DRAINAGE/BLEEDING. CALL LIGHT WITHIN REACH, WILL CONT TO MONITOR.
--- NOTE | 2016-12-13 09:43 | NUR ---
PATIENT BP 78/30, DR WHITFIELD PAGED. HE ALSO REFUSED 0900 TROP BLOOD DRAW PER CENTRAL OFFICE SUPERVISOR, DR MADE AWARE. PATIENT STATES "I FEEL VERY GOOD", NO SIGN OF ACUTE DISTRESS NOTED. DR WHITFIELD AT BEDSIDE AND BP RECHECKED- 69/39. PATIENT NOW OKAY TO GET BLOOD DRAW, LAB MADE AWARE AND WILL DRAW PATIENT. BOLUS ORDERED 500ML NS AND GIVEN. WILL CONT TO MONITOR BP.
--- NOTE | 2016-12-13 10:10 | NUR ---
IV DISLODGED. NEW IV STARTED TO RT UPPER ARM, 22G. BOLUS CONTINUED. PATIENT TOLERATED WELL. WILL CONT TO MONITOR BP.
[2016-12-13 15:35] LABS: IRON 66 ug/dL (65-170); TOTAL IRON BINDING CAPACITY 249 ug/dL (250-450)
[2016-12-13 15:47] LABS: RED BLOOD CELLS 3.69 M/mm3 (4.52-5.90)
--- NOTE | 2016-12-13 18:40 | NUR ---
PATIENT C/O LLE PAIN, TYLENOL WAS GIVEN WITH RELIEF. NO COMPLAINTS OF SOB OR CHEST PAIN THROUGHOUT SHIFT. TOLERATED DINNER MEAL WELL. REPOSITIONED. WILL CONT TO MONITOR AND ENDORSE TO NOC NURSE.
--- NOTE | 2016-12-13 19:55 | NUR ---
PT A/O X3, WITH EPISODES OF CONFUSION. TELE #27, 100% PACED ON DEMAND, DENIES CHEST PAIN. WEAK PEDAL PULSES, +2 EDEMA TO BLE. LUNG SOUNDS DIMINISHED ON 02 2L NC, DENIES SOB. ABD SOFT AND NONDISTENDED, BOWEL SOUNDS ACTIVE, DENIES N/V. VOIDS USING A URINAL. STRICT I/Os. GENERALIZED WEAKNESS, ON AIR MATTRESS. DARK DISCOLORATION NOTED TO BLE, SMALL WOUND NOTED TO LEFT BUTTOCK; BLANCHABLE REDNESS TO BUTTOCKS. IVF INFUSING WELL TO SARAH. PT DENIES BED. BED IN LOWEST SETTING, SIDE RAILS UP X2, CALL LIGHT WITHIN REACH. WILL CONTINUE TO MONITOR.
--- NOTE | 2016-12-14 02:03 | NUR ---
PT SLEEPING AT THIS TIME, BUT EASILY AROUSABLE. NO SIGNS OF RESP DISTRESS OR PAIN OBSERVED. IVF INFUSING WELL. WILL CONTINUE TO MONITOR.
[2016-12-14 06:08] VITALS: BP 109/40
[2016-12-14] MEDS ORDERED: ASPIR 8181 MG PO (06:39)
--- NOTE | 2016-12-14 07:30 | NUR ---
PATIENT RECEIVED AND SEEN. PT IS AAOX3. APPEARS CALM. TELE MONITOR [address] PATIENT HAS LEFT CHEST PACEMAKER. DENIES CHEST PAIN. NO SOB NOTED. PATIENT HAS 2+ EDEMA BLE. RESPIRATIONS ARE EVEN AND UNLABORED ON 2L NC. LUNG SOUNDS DIMINISHED IN THE BASES. BOWEL SOUNDS ACTIVE. PATIENT HAS AIR MATTRESS IN PLACE. GENERALIZED WEAKNESS. PATIENT HAS DARK DISCOLORATION TO BLE. PATIENT HAS BLANCHABLE REDNESS TO BUTTOCK. NS INFUSING AT 10CC/HR. PATIENT HAS CALL LIGHT WITHIN REACH. WILL CONTINUE TO MONITOR. ALL SAFETY MEASURES IN PLACE.
[2016-12-14 07:40] LABS: CALCIUM 8.7 mg/dL (8.5-10.1); CARBON DIOXIDE 31.7 mmol/L (21-32); CHLORIDE SERUM 107 mmol/L (98-107); CREATININE SERUM 1.1 mg/dL (0.7-1.3); GLUCOSE SERUM 78 mg/dL (74-106); MAGNESIUM 1.9 mg/dL (1.8-2.4); PHOSPHOROUS 4.2 mg/dL (2.5-4.9); POTASSIUM SERUM 3.8 mmol/L (3.5-5.1); SODIUM SERUM 143 mmol/L (136-145)
--- NOTE | 2016-12-14 08:05 | NUR ---
PT REPORTS SLEEPING WELL THROUGHOUT THE NIGHT. DENIES PAIN, NO DISTRESS OBSERVED. IVF INFUSING WELL. ALL NEEDS MET. CARE ENDORSED TO AM NURSE.
[2016-12-14 08:07] LABS: BASOPHIL % 0.7 % (0-2)
[2016-12-14 08:08] LABS: PLATELET COUNT 80 x10^3mcL (130-400)
--- NOTE | 2016-12-14 09:40 | NUR ---
PATIENT OXYGEN WAS REMOVED AT THIS TIME. PATIENT TOLERATED WELL. DENIED SOB, DIZZINESS. RESPIRATIONS EVEN AND UNLABORED ON ROOM AIR. WILL CONTINUE TO MONITOR.
[2016-12-14 09:45] VITALS: BP 97/49
[2016-12-14 10:37] VITALS: BP 102/37
--- NOTE | 2016-12-14 10:40 | NUR ---
PATIENT IS TOLERATING ROOM AIR. DENIES DIZZINESS. DENIES SOB. RESPIRATIONS EVEN AND UNLABORED. PATIENT STATES THAT HE FEELS NORMAL. BP 102/37, SPO2 91%, RR18. PHYSICIAN NOTIFIED AND GAVE OK TO DISCHARGE PATIENT.
[2016-12-14 11:05] VITALS: BP 102/37
--- NOTE | 2016-12-14 14:36 | NUR ---
P.T. NOTES P.T. EVAL NOT DONE; Pt WAS DISCHARGED FROM HOSPITAL.
== END 2016-12-14 12:56 | disposition home or self-care (01) | DRG 291 ==
LOC: ED 17:35 → DU 19:15
PROVIDERS: ADMIT Family Medicine Sports Medicine
DX: I11.0 Hypertensive heart disease with heart failure (principal); J96.00 Acute respiratory failure, unspecified whether with hypoxia or hypercapnia; N17.0 Acute kidney failure with tubular necrosis; E44.0 Moderate protein-calorie malnutrition; I50.43 Acute on chronic combined systolic (congestive) and diastolic (congestive) heart failure; R55 Syncope and collapse; I49.5 Sick sinus syndrome; G62.9 Polyneuropathy, unspecified; M19.90 Unspecified osteoarthritis, unspecified site; N40.0 Benign prostatic hyperplasia without lower urinary tract symptoms; D53.9 Nutritional anemia, unspecified; E03.9 Hypothyroidism, unspecified; E66.3 Overweight; Z68.26 Body mass index [BMI] 26.0-26.9, adult; Z95.0 Presence of cardiac pacemaker; Z86.718 Personal history of other venous thrombosis and embolism
CPT/HCPCS: 82962; 83880; 84439; G0480; J1940; J7030; J7040; Q0092